=== PATIENT | male | born 1960 | race Caucasian/White ===

== ENCOUNTER 2017-09-06 19:08 | Emergency (ER) | payer OTHER ==
[2017-09-06 20:15] VITALS: BP 134/89; PULSE 99; RESP 18; TEMP 98; O2SAT 99
== END 2017-09-06 20:10 | disposition home or self-care (01) | DRG 395 ==
LOC: ED 19:08
DX: K94.19 Other complications of enterostomy (principal)
CPT/HCPCS: 99282